=== PATIENT | male | born 1945 | race Caucasian/White ===

== ENCOUNTER 2024-11-13 15:44 | Outpatient (CLI) | payer MEDICARE, SELFPAY ==
--- OUTSIDE RECORDS SUMMARY | 2024-11-13 15:49 | XMS_ITS | Clinical Summary ---
Author Organization [facility] Address [address] [facility] [address] [facility] [place] [address] Phone Care Team Providers Care Us Marketing Director Name Role Phone Unavailable Primary Care Provider Unavailabl e Allergies No known active allergies Medications Hearing Aid AccessoryIndicati ons:Hearing loss, unspecified hearing loss type, unspecified laterality Hearing Aids DX H91.90. 2 Each 8 Active apixaban (Eliquis) 5 mg tablet TAKE 1 TABLET BY MOUTH TWICE DAILY 60 Tablet 11 3 Active metoprolol tartrate 75 mg Tablet TAKE 1 TABLET BY MOUTH TWICE DAILY 200 Tablet 2 4 Active diltiaZEM (CARDIZEM CD) 120 mg Controlled Delivery 24 hour capsule take one capsule by mouth daily 90 Capsule 4 Active hydroCHLOROthiazi de 25 mg tabletIndications :Essential hypertension take 1 tablet by mouth daily 100 Tablet 1 4 Active ramipriL (ALTACE) 10 mg capsuleIndication s:Essential hypertension take 1 capsule by mouth daily 100 Capsule 1 4 Active Active Problems Problem Noted Date Diagnosed Date Abnormal Holter monitor finding 06/17/2022 Prediabetes 03/21/2021 Anemia, unspecified 09/07/2012 Osteoarthrosis, unspecified whether generalized or localized, unspecified site 09/07/2012 Essential hypertension 08/19/2011 BPH (benign prostatic hyperplasia) 06/21/2011 Elevated prostate specific antigen (PSA) 011 Spinal stenosis, lumbar naima on, without neurogenic claudication 06/21/2011 Sensorineural hearing loss of both ears 05/29/20 11 Resolved Problems Problem Noted Date Diagnosed Date Resolved Date Controlled type 2 diabetes with neuropathy 02/09/2018 03/21/2021 Type 2 diabetes mellitus without complication 11/13/19 16 01/20/2018 Controlled type 2 diabetes m haim with 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, without long-term current use of insulin 09/07/2012 021 Encounters Date Type Department Care Team Description 11/06/2024 External Device Data STL ABSTRACTION Provider, Abstract 11/05/2024 External Device Data ST[facility] ABSTRACTION Provider, Abstract 10/19/2024 External Device Data [facility] ABSTRACTION Provider, Abstract 09/25/2024 [facility] [place] [address] [place] [address] [address] [place] [address] Selwyn Booker MD Essential hypertension 09/22/2024 External Device Data ST[facility] ABSTRACTION Provider, Abstract 09/21/2024 External Device Data [facility] ABSTRACTION Provider, Abstract from Last 3 Months Immunizations Immunization Administration Dates Next Due (ADACEL/BOOSTRIX)(10 YR UP) TDAP VACCINE, 0.5ML, IM 08/09/2008 (PFIZER)(12 YR UP) COVID-19 VACCINE - EMERGENCY USE AUTHORIZATION, MRNA, [id number](PF) 30 MCG/0.3 ML IM SUSP 12/26/2020,12/05/2020 (PNEUMOVAX 23)(50 YRS UP) PN EUMOCOCCAL POLYSACCHARIDE (PPV23) 0.5 ML, IM 03/21/2021 (PREVNAR 13)(6 WKS UP) PNEUM OCOCCAL CONJUGATE (PCV13) 0.5 ML, IM 08/23/2014 PNEUMOVAX (PPSV23) pneumococ abhi polysaccharide 23-valent Vaccine 08/15/2010 Family History Medical History Relation Name Comments Other Father blood clot Diabetes Mother Heart Disease Paternal Uncle Relation Name Status Comments Father Mother (Age 85) Paternal Uncle Social History Tobacco Use Types Packs/Day Years Used Date Smoking Tobacco: Never Smokeless Tobacco: Never Tobacco Cessation:Counseling Given: Not Answered Alcohol Use Standard Drinks/Week Comments No 0 (1 standard drink = 0.6 oz pur e alcohol) occ Sex and Gender Information Value Date Recorded Sex Assigned at Not on file 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 Gender Identity Not on file Sexual Orientation Not on file Occupation Industry Job Start Date Job End Date Not on file Not on file Not on file Not on file Last Filed Vital Signs Vital Sign Reading Time Taken Comments Blood Pressure 162/118 01/29/2023 9:00 AM CDT Pulse 111 01/29/2023 9:00 AM CDT Temperature - - Respiratory Rate 14 12/11/2016 10:12 AM CDT Oxygen Saturation 99% 01/29/2023 9:00 AM CDT Inhaled Oxygen Concentration - - Weight 65.8 kg (145 lb) 08/28/2023 12:02 PM BEAUTY COUNSELOR Height 182.9 cm (6') 08/28/2023 12:02 PM BEAUTY COUNSELOR Body Mass Index 19.67 08/28/2023 12:02 PM BEAUTY COUNSELOR Plan of Treatment Health Maintenance Due Date Last Done Comments ZOSTER VACCINE (1 of 2) 1993 DTAP/TDAP/TD VACCINES (2 - T d or Tdap) 08/09/2018 08/09/2008 RSV VACCINE (60+ or ) (1 - 1-dose 75+ series) 2018 INFLUENZA VACCINE (#1) 2024 08/28/2023, 2020 COVID-19 Vaccine (3 - 2023-2 5 season) 2024 12/26/2020, 12/05/2020 [place] Preventative Visit/Annual Wellness Visit 09/01/2024 08/28/2023, 05/28/2022, 03/08/2019, Additional history exists PNEUMOCOCCAL VACCINE 50+ YEARS Completed 0 03/21/2021, 08/23/2014, 08/15/2010 Insurance [facility] DUAL COMPLETE CHOICE PPO DSNP [facility] [id number]
--- OUTSIDE RECORDS SUMMARY | 2024-11-13 15:49 | XMS_ITS | Continuity of Care Document ---
Author Organization [facility] Address [address] [place] [address] Phone Care Team Providers Care Rate Examiner Name Role Phone Tung Patino MD Unavailable Unavailable Allergies, Adverse Reactions, Alerts Substance Reaction Status Criticality No Known allergies Medications Medication Instructions Dosage Effective Dates (start - stop) Status Comments hydrocodone 5 mg-acetaminophen 325 mg tablet take 1 - 2 Tablet by oral route every 6 hours as needed for pain 1-2 Tablet - Active gabapentin 100 mg capsule take 2 capsule by oral route 4 times every day - Active NAPROXEN (unknown strength) Not Available - Active RAMIPRIL (unknown strength) Not Available - Active POTASSIUM (unknown strength) Not Available - Active hydrocodone 5 mg-acetaminophen 325 mg tablet take 1 - 2 Tablet by oral route every 6 hours as needed for pain 1-2 Tablet - No Longer Active Procedures Procedure Date OFFICE/OUTPATIENT VISIT EST OFFICE CONSULTATION OFFICE/OUTPATIENT VISIT EST OFFICE CONSULTATION Advance Directives Directive Yes / No Effective Date File Name No Information Encounters Encounter Description Practice Location Reason(s) For Visit Diagnoses Date Provider Providers Copied on Encounter [facility], [address], [place], [address], [phone] [facility] [address] No Information 4 Carey Ruby. [address] [place], [place], [id number] . tel: [phone] [facility], [address] [place] [address], [address], [place] [phone] [facility] [address] No Information 4 Carey Ruby. [address] [place], [place], [id number] . tel: [phone] OFFICE/OUTPAT IENT VISIT EST [facility], [address] [place] [address], [address], [place] tel:[phone] [facility] Spinal stenosis of lumbar regionLow back painSciatica 3 Carey Ruby. [address] [place] [address], [id number] . tel: [phone] Specialist: Morro Kitchen, [address] [place] [address], [id number]. [phone] OFFICE CONSULTATION [facility], [address] [place] [address], [address], [place] tel:[phone] [facility] Spinal stenosis of lumbar region 3 Imtiaz Hooker. [address] [place] [address], [id number] . tel: [phone] Specialist: Morro iKtchen, [address] [place] [address], [address]. [phone] ring Provider: Gabe Centeno Retired, Retired [address], [place], [address]. tel:[phone] OFFICE/OUTPAT IENT VISIT EST [facility], [address] [place] [address], [address], [place] tel:[phone] [facility] SciaticaLow back painSpinal stenosis of lumbar region 3 Carey Ruby. [address] [place] [address], [id number] . tel: [phone] Referring Provider: Tung Bishop, [address] [place] [address], [id number]. tel:[phone] [facility], [address] [place] [address], [address], tel:[phone] [facility] No Information 3 Carey Ruby. [address] [place] [address], [id number] . tel: [phone] OFFICE CONSULTATION [facility], [address] [place] [address], [address], tel:[phone] [facility] Low back painSciatica 3 Carey Ruby. [address] [place] [address], [id number] . tel: [phone] Referring Provider: Gabe Centeno Retired, Retired [address] [place], [address]. [phone] Family History Family Member Type Diagnosis Age At Onset No Information Payers Payer name Insurance type Covered constitution party ID Authoriza tion(s) No Information Social History Type Description Quantity Date Captured Comments Sex Male Smoking Status No Information Chief Complaint And Reason For Visit No Information Reason For Referral Reason For Referral No Information Plan Of Treatment Date Type Action Status Referral Ordered: RADEX SPI LUMBOSAC 2/3 VIEWS ordered Referral Ordered: B1&/JT IMG LMTD AREA Appointment date/timeframe: 07/08/2013 ordered Referral Ordered: MRI SPI CANAL&CNTS LMBR C-MATRL Bilateral spine, lumbar Appointment date/timeframe: 06/21/2013 ordered History Of Present Illness Encounter Date Complaint History Of Prese nt Illness No Information Functional Status Date Functional Assessmen t No Information Instructions Date Instruction Additional Infor mation Physical activity counseling Rel ated to Dietary surveillance counseling Physical activity counseling Rel ated to Dietary surveillance counseling Physical activity counseling Rel ated to Dietary surveillance counseling Assessments Type Assessment Date No Information Patient Care Teams Name Effective Dates (start - stop) Status Members No Information
--- OUTSIDE RECORDS SUMMARY | 2024-11-13 15:50 | XMS_ITS | Encounter Summary ---
Author Organization [facility] Address [address] 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
--- OUTSIDE RECORDS SUMMARY | 2024-11-13 15:50 | XMS_ITS | Encounter Summary ---
Author Organization [facility] Address [address] [place] [address] Care Team Providers Care Chain Tender Name Role Phone Brendan Ramon MD Primary Care Provider Encounter Details Date Type Department Care Team (Late st Contact Info) Description 04/12/2019 Chart Note [facility] [address] [place] [address] Zoey Peralta, RN Social History Tobacco Use Types Packs/Day Years Used Date Smoking Tobacco: Never Smokeless Tobacco: Never Alcohol Use Standard Drinks/Week Comments No 0 (1 standard drink = 0.6 oz pur e alcohol) occ Sex and Gender Information Value Date Recorded Sex Assigned at Not on file Legal Sex Male 3:31 AM NETBACKUP ADMINISTRATOR Gender Identity Not on file Sexual Orientation Not on file Occupation Industry Job Start Date Job End Date Not on file Not on file Not on file Not on file documented as of this encounter Progress Notes * Brendan Ramon MD - 04/12/2019 6:00 PM CDT Thanks I deleted the ramipril 10 from his list documented in this encounter Plan of Treatment Not on file documented as of this encounter Visit Diagnoses Not on filedocumented in this encounter Care Teams Chain Tender Relationship Specialty Start Date End Date Brendan Ramon MD PCP - General Internal Medicine 02/09/18 03/20/21 documented as of this encounter
--- OUTSIDE RECORDS SUMMARY | 2024-11-13 15:50 | XMS_ITS | Encounter Summary ---
Author Organization [employer] [facility] Address [address] [place] [address] Care Team Providers Care Mobile Paint Specialist Name Role Phone Brendan Ramon MD Primary Care Provider Encounter Details Date Type Department Care Team (Latest Contact Info) Description 08/02/2002 Outpatient Historical [facility] SANDRA Moreno, Gabe Jordan MD NO ADDRESS ON FILE ANEMIA NOS (Primary Dx) Social History Tobacco Use Types Packs/Day Years Used Date Smoking Tobacco: Never Assessed Sex and Gender Information Value Date Recorded Sex Assigned at Not on file Legal Sex Male 3:31 AM ACTIVITY MANAGER Gender Identity Not on file Sexual Orientation Not on file documented as of this encounter Plan of Treatment Not on file documented as of this encounter Visit Diagnoses Diagnosis Anemia, unspecified- Primary documented in this encounter Care Teams Mobile Paint Specialist Relationship Specialty Start Date End Date Brendan Ramon MD PCP - General Internal Medicine 02/09/18 03/20/21 documented as of this encounter
--- OUTSIDE RECORDS SUMMARY | 2024-11-13 15:50 | XMS_ITS | Encounter Summary ---
Author Organization [facility] Address [address] [place]: Epic Prelude ADT [place] [address] Care Team Providers Care Diamond Finishing Supervisor Name Role Phone Brendan Ramon MD Primary Care Provider Encounter Details Date Type Department Care Team (Late st Contact Info) Description 10/19/1991 Outpatient Historical SafGabe mejia MD NO ADDRESS ON FILE Social History Tobacco Use Types Packs/Day Years Used Date Smoking Tobacco: Never Assessed Sex and Gender Information Value Date Recorded Sex Assigned at Not on file Legal Sex Male 3:31 AM FARE COLLECTOR Gender Identity Not on file Sexual Orientation Not on file documented as of this encounter Plan of Treatment Not on file documented as of this encounter Visit Diagnoses Not on filedocumented in this encounter Care Teams Diamond Finishing Supervisor Relationship Specialty Start Date End Date Brendan Ramon MD PCP - General Internal Medicine 02/09/18 03/20/21 documented as of this encounter
--- OUTSIDE RECORDS SUMMARY | 2024-11-13 15:50 | XMS_ITS | Encounter Summary ---
Author Organization [facility] Address [address] 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
--- OUTSIDE RECORDS SUMMARY | 2024-11-13 15:50 | XMS_ITS | Encounter Summary ---
Author Organization [facility] Address [address] [place]: Epic Prelude ADT [place] [address] Care Team Providers Care Barrel Filler Head Name Role Phone Brendan Ramon MD Primary Care Provider Encounter Details Date Type Department Care Team (Late st Contact Info) Description 04/14/1990 Outpatient Historical SafGabe mejia MD NO ADDRESS ON FILE Social History Tobacco Use Types Packs/Day Years Used Date Smoking Tobacco: Never Assessed Sex and Gender Information Value Date Recorded Sex Assigned at Not on file Legal Sex Male 3:31 AM ACCOUNTING RECRUITER Gender Identity Not on file Sexual Orientation Not on file documented as of this encounter Plan of Treatment Not on file documented as of this encounter Visit Diagnoses Not on filedocumented in this encounter Care Teams Barrel Filler Head Relationship Specialty Start Date End Date Brendan Ramon MD PCP - General Internal Medicine 02/09/18 03/20/21 documented as of this encounter
--- OUTSIDE RECORDS SUMMARY | 2024-11-13 15:50 | XMS_ITS | Encounter Summary ---
Author Organization [facility] Address [address] 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
--- OUTSIDE RECORDS SUMMARY | 2024-11-13 15:50 | XMS_ITS | Encounter Summary ---
Author Organization [facility] Address [address] 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
--- OUTSIDE RECORDS SUMMARY | 2024-11-13 15:50 | XMS_ITS | Encounter Summary ---
Author Organization [employer] [facility] Address [address] [place] [address] Care Team Providers Care Waste Management Specialist Name Role Phone Brendan Ramon MD Primary Care Provider Encounter Details Date Type Department Care Team (Latest Contact Info) Description 07/22/2005 Outpatient Historical HIS [facility] Moreno, Gabe Jordan MD NO ADDRESS ON FILE OSTEOARTHROS NOS-UNSPEC (Primary Dx) Social History Tobacco Use Types Packs/Day Years Used Date Smoking Tobacco: Never Assessed Sex and Gender Information Value Date Recorded Sex Assigned at Not on file Legal Sex Male 3:31 AM PHYSIOTHERAPY ASSISTANT Gender Identity Not on file Sexual Orientation Not on file documented as of this encounter Plan of Treatment Not on file documented as of this encounter Procedures Procedure Name Priority Date/Time Associated Diagnosis Comments URINALYSIS W/REFLEX MICROSCOPIC Routine 07/22/2005 3:24 PM PHYSIOTHERAPY ASSISTANT TSH REFLEXIVE Routine 07/22/2005 3:17 PM PHYSIOTHERAPY ASSISTANT CBC WITH DIFFERENTIAL Routine 07/22/2005 3:17 PM PHYSIOTHERAPY ASSISTANT CBC WITH DIFFERENTIAL Routine 07/22/2005 3:17 PM PHYSIOTHERAPY ASSISTANT PSA Routine 07/22/2005 3:17 PM PHYSIOTHERAPY ASSISTANT LIPID PANEL Routine 07/22/2005 3:17 PM PHYSIOTHERAPY ASSISTANT COMPREHENSIVE METABOLIC PANEL Routine 07/22/2005 3:17 PM PHYSIOTHERAPY ASSISTANT documented in this encounter Results * (ABNORMAL) URINALYSIS (07/22/2005 3:24 PM PHYSIOTHERAPY ASSISTANT) COLOR UA Yellow INTERFACE SYSTEM CLARITY UA Clear Clear INTERFACE SYSTEM SPECIFIC GRAVITY UA 1.010 1.001 - 1.035 INTERFACE SYSTEM PH UA 7.0 5.0 - 8.0 INTERFACE SYSTEM LEUKOCYTE ESTERASE UA Negative Negative INTERFACE SYSTEM NITRITE UA Negative Negative INTERFACE SYSTEM PROTEIN UA Negative Negative INTERFACE SYSTEM GLUCOSE UA Negative Negative INTERFACE SYSTEM KETONES UA Trace(A) Negative INTERFACE SYSTEM UROBILINOGEN UA <1 <1 mg/dL INTE RFACE SYSTEM BILIRUBIN UA Negative Negative INTERFA CE SYSTEM BLOOD UA Negative Negative INTERFACE SYSTEM 07/22/2005 3:24 PM PHYSIOTHERAPY ASSISTANT Gabe Moreno MD URINE ORDERABLES Final Res ult Performing Organization Address [facility] Phone Number INTERFACE SYSTEM Refer to clinic/hospital department * (ABNORMAL) CBC WITH DIFFERENTIAL (07/22/2005 3:17 PM PHYSIOTHERAPY ASSISTANT) NEUTROPHILS 72(H) 45 - 70 % INTERFAC E SYSTEM LYMPHOCYTES 18 16 - 45 % INTERFAC E SYSTEM MONOCYTES 8 3 - 13 % INTERFACE SYSTEM EOSINOPHILS 1 0 - 7 % INTERFAC E SYSTEM BASOPHILS 1 0 - 2 % INTERFACE SYSTEM NEUTROPHIL ABSOLUTE 4.72 1.90 - 7.00 K/uL INTERFACE SYSTEM LYMPHOCYTE ABSOLUTE 1.19 0.70 - 4.50 K/uL INTERFACE SYSTEM MONOCYTE ABSOLUTE 0.54 0.10 - 1.30 K/uL INTERFACE SYSTEM EOSINOPHIL ABSOLUTE 0.06 0.00 - 0.70 K/uL INTERFACE SYSTEM BASOPHILS ABSOLUTE 0.04 0.00 - 0.20 K/uL INTERFACE SYSTEM 07/22/2005 3:17 PM PHYSIOTHERAPY ASSISTANT Gabe Moreno MD HEMATOLOGY ORDERABLES Lexi l Result Performing Organization Address [facility] de Phone Number INTERFACE SYSTEM Refer to clinic/hospital department * CBC WITH DIFFERENTIAL (07/22/2005 3:17 PM PHYSIOTHERAPY ASSISTANT) WBC 6.6 4.0 - 9.8 K/uL INTERFACE SYSTEM RBC 4.85 4.50 - 5.40 M/uL INTERFACE SYSTEM HEMOGLOBIN 14.3 13.6 - 16.5 g/dL INTERFACE SYSTEM HEMATOCRIT 42.1 40.0 - 48.0 % INTERFACE SYSTEM MCV 86.8 82.0 - 99.0 fL INTERFACE SYSTEM MCH 29.5 27.2 - 32.6 pg INTERFACE SYSTEM MCHC 34.0 31.5 - 35.5 % INTERFACE SYSTEM RDW 12.9 11.5 - 14.5 % INTERFACE SYSTEM RDW-STDEV 41.3 37.1 - 48.7 fL INTERFACE SYSTEM PLATELETS 242 140 - 350 K/uL INTERFACE SYSTEM MPV 9.8 9.3 - 12.4 fL INTERFACE SYSTEM 07/22/2005 3:17 PM PHYSIOTHERAPY ASSISTANT Gabe Moreno MD HEMATOLOGY ORDERABLES Lexi l Result Performing Organization Address [facility] Phone Number INTERFACE SYSTEM Refer to clinic/hospital department * TSH REFLEXIVE (07/22/2005 3:17 PM PHYSIOTHERAPY ASSISTANT) TSH 1.21 0.27 - 4.20 uU/mL INTERFACE SYSTEM 07/22/2005 3:17 PM PHYSIOTHERAPY ASSISTANT Gabe Moreno MD CHEMISTRY ORDERABLES Final Result Performing Organization Address [facility] Co de Phone Number INTERFACE SYSTEM Refer to clinic/hospital department * PSA (07/22/2005 3:17 PM PHYSIOTHERAPY ASSISTANT) PSA 2.6 0.0 - 4.0 ng/mL INTERFACE SYSTEM Comment:Performed on [employer] M odular E170 System 07/22/2005 3:17 PM PHYSIOTHERAPY ASSISTANT Gabe Moreno MD CHEMISTRY ORDERABLES Final Result Performing Organization Address [facility] Co de Phone Number INTERFACE SYSTEM Refer to clinic/hospital department * LIPID PANEL (07/22/2005 3:17 PM PHYSIOTHERAPY ASSISTANT) LIPID PANEL COMMENT See below INTERFACE SYSTEM Comment: Adult ATP III Classifications: Cholesterol (mg/dL) Triglyceride (mg/dL) Desirable <200 Normal <150 Borderline 200 - 239 Borderline High 150 - 199 High >=240 High 200 - 499 Very High >=500 HDL Cholesterol (mg/dL) LDL (mg/dL) Low (increased risk) <40 Optimal <100 High (reduced risk) >=60 Near or above optimal 100 - 129 Borderline 130 - 159 High 160 - 189 Very High >=190 LDL calculation is not accurate if Triglycerides are greater than 400 mg /dL Pediatric NCEP Classifications: Cholesterol(<20 years),(mg/dL) Triglyceride Desirable <170 Pediatric classification Borderline 170 - 199 not defined. High >=200 HDL (<5 years) LDL (mg/dL) No Reference Range Established Desirable <110 Borderline 110 - 129 High >=130 CHOLESTEROL 149 100 - 199 mg/dL INTERFACE SYSTEM TRIGLYCERIDE 53 10 - 149 mg/dL INTERFACE SYSTEM HDL 59 40 - 59 mg/dL INTERFACE SYSTEM LDL CALCULATED 79 <=99 mg/dL INTERFACE SYSTEM CHOL/HDL RATIO 2.5 2.0 - 5.0 INTER FACE SYSTEM Comment:See interpretive manjinder a section for risk classifications. 07/22/2005 3:17 PM PHYSIOTHERAPY ASSISTANT us Gabe Moreno MD CHEMISTRY ORDERABLES Final Result INTERFACE SYSTEM Refer to clinic/hospital department * (ABNORMAL) COMPREHENSIVE METABOLIC PANEL (07/22/2005 3:17 PM PHYSIOTHERAPY ASSISTANT) GLUCOSE 100 65 - 109 mg/dL INTERFACE SYSTEM CREATININE 0.8 0.5 - 1.3 mg/dL INTERFACE SYSTEM CALCIUM 9.3 8.6 - 10.2 mg/dL INTERFACE SYSTEM AST 28 12 - 38 U/L INTERFACE SYSTEM ALKALINE PHOSPHATASE 92 40 - 129 U/L INTERFACE SYSTEM BILIRUBIN TOTAL 0.8 0.2 - 1.0 mg/dL INTERFACE SYSTEM ALBUMIN 4.7 3.4 - 4.8 g/dL INTERFACE SYSTEM TOTAL PROTEIN 7.8 6.3 - 8.6 g/dL INTERFACE SYSTEM ALT 19 0 - 41 U/L INTERFACE SYSTEM BUN 14 6 - 20 mg/dL INTERFACE SYSTEM SODIUM 139 135 - 145 mmol/L INTERFACE SYSTEM POTASSIUM 3.2(L) 3.5 - 4.9 mmol/L INTERFACE SYSTEM CHLORIDE 100 96 - 108 mmol/L INTERFACE SYSTEM CO2 31(H) 22 - 30 mmol/L INTERFACE SYSTEM 07/22/2005 3:17 PM PHYSIOTHERAPY ASSISTANT us Gabe Moreno MD CHEMISTRY ORDERABLES Final Result INTERFACE SYSTEM Refer to clinic/hospital department documented in this encounter Visit Diagnoses Diagnosis Osteoarthrosis, unspecified whether generalized or localized, unspecified site- Primary documented in this encounter Care Teams Waste Management Specialist Relationship Specialty Start Date End Date Brendan Ramon MD PCP - General Internal Medicine 02/09/18 03/20/21 documented as of this encounter
--- OUTSIDE RECORDS SUMMARY | 2024-11-13 15:50 | XMS_ITS | Encounter Summary ---
Author Organization [facility] Address [address] 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
--- OUTSIDE RECORDS SUMMARY | 2024-11-13 15:50 | XMS_ITS | Encounter Summary ---
Author Organization [employer] [facility] Address [address] [place] [address] Care Team Providers Care Continuity Reader Name Role Phone Brendan Ramon MD Primary Care Provider Encounter Details Date Type Department Care Team (Latest Contact Info) Description 08/12/2000 Outpatient Historical HIS [facility] Moreno, Gabe Jordan MD NO ADDRESS ON FILE Anemia, unspecified (Primary Dx) Social History Tobacco Use Types Packs/Day Years Used Date Smoking Tobacco: Never Assessed Sex and Gender Information Value Date Recorded Sex Assigned at Not on file Legal Sex Male 3:31 AM BAND MAKER Gender Identity Not on file Sexual Orientation Not on file documented as of this encounter Plan of Treatment Not on file documented as of this encounter Visit Diagnoses Diagnosis Anemia, unspecified- Primary documented in this encounter Care Teams Continuity Reader Relationship Specialty Start Date End Date Brendan Ramon MD PCP - General Internal Medicine 02/09/18 03/20/21 documented as of this encounter
--- OUTSIDE RECORDS SUMMARY | 2024-11-13 15:50 | XMS_ITS | Clinical Summary ---
Author Organization [facility] [address] Address [address] [place] [address] Care Team Providers Care Salesperson Pets And Pet Supplies Name Role Phone Benny Kendall MD Primary Care Provider [phone] Chato Alexander MD Unavailable Allergies No known active allergies Medications hearing aid accessory misc Hearing Aids DX H91.90. 01/23/20 18 Active cyanocobalamin (vitamin B-12) 500 mcg tabletIndicati ons:Prevention of Vitamin B12 Deficiency Take 1 tablet (500 mcg total) by mouth daily Active magnesium oxide (MAG-OX) 250 mg (150.8 mg elemental) tabletIndicati ons:hypomagnes emia 1 tablet (250 mg total) daily Active cholecalcifero l (Vitamin D3) 2000 unit capsule 1 capsule (2,000 Units total) Active glucosam-madyson- [id number]-H-pkla-shan sw 750 mg-644 mg- 30 mg-1 mg tablet Take by mouth Active acetaminophen (ARTHRITIS PAIN RELIEF, ACETAM, ORAL) Take by mouth Ac tive dilTIAZem CD 120 mg 24 hr capsule Take 1 capsule (120 mg total) by mouth daily 90 capsule 3 12/11/19 24 Active metFORMIN XR (GLUCOPHAGE XR) 500 mg 24 hr tablet Take 1 tablet (500 mg total) by mouth daily with breakfast 30 tablet 2 12/21/19 24 025 Active ipratropium (ATROVENT) 21 mcg (0.03 %) nasal sprayIndicatio ns:Rhinorrhea USE 2 SPRAYS IN BOTH NOSTRILS EVERY 12 HOURS 90 mL 1 10/02/19 25 Active metoprolol tartrate (LOPRESSOR) 75 mg tablet immediate release tablet TAKE 1 TABLET BY MOUTH TWICE DAILY 200 tablet 2 10/13/19 25 Active Eliquis 5 mg tablet TAKE 1 TABLET BY MOUTH TWICE DAILY 200 tablet 2 10/26/19 25 Active hydroCHLOROthi azide (HYDRODIURIL) 25 mg tablet Take 1 tablet (25 mg total) by mouth daily 90 tablet 3 10/27/19 25 026 Active ramipriL (ALTACE) 10 mg capsule Take 1 capsule (10 mg total) by mouth daily 90 capsule 3 10/27/19 25 026 Active hydroCHLOROthi azide (HYDRODIURIL) 25 mg tablet Take 1 tablet (25 mg total) by mouth daily 05/13/20 23 025 Discontinued(Re order) ramipriL (ALTACE) 10 mg capsule Take 1 capsule (10 mg total) by mouth daily 05/13/20 23 025 Discontinued(Re order) Eliquis 5 mg tablet Take 1 tablet (5 mg total) by mouth 2 (two) times a day 180 tablet 3 12/11/19 24 025 Discontinued Active Problems Problem Noted Date Diagnosed Date Left inguinal hernia 07/06/2024 Longstanding persistent atrial fibrillation 06/02 Nonrheumatic mitral valve regurgitation 12/11/19 24 RBBB 12/11/2023 Establishing care with new doctor, encounter for 12/09/2023 Assessment & Plan (12/09/2023 1:23 PM CDT): A(n) initial visit to establish care has been performed today. Olman Lindsay is not up to date on screening tests. He is in need of Hepatitis B screening and Cholesterol screening. He is up to date on needed preventative vaccinations. We discussed healthy lifestyle habits, educational material has been given. Medications reviewed, changes documented as per the medical record and discussed with patient along with risks vs benefits. Return in 6 months Vegetarian diet 12/09/2023 Abnormal Holter monitor finding 06/17/2022 Prediabetes 03/21/2021 Anemia, unspecified 09/07/2012 Osteoarthritis 09/07/2012 Essential hypertension 08/19/2011 BPH (benign prostatic hyperplasia) 06/21/2011 Elevated prostate specific antigen (PSA) 011 Spinal stenosis, lumbar naima on, without neurogenic claudication 06/21/2011 Sensorineural hearing loss of both ears 05/29/20 11 Resolved Problems Problem Noted Date Diagnosed Date Resolved Date Atrial fibrillation, unspecified type 12/09/2023 06/22/2024 Encounters Date Type Department Care Team Description 10/25/[address] [address] Ya Yu MA Successful Phone Call (AWV SCHEDULING) 10/20/[address] [address] Ya Yu MA Unsuccessful Phone Call 1 (AWV SCHEDULING) 09/02/2024 11:45 AM FEEDER DRIVER Office Visit [facility] Primary Care at [address] [address] Benny Kendall MD Rhinorrhea (Primary Dx) 08/20/2024 Telephone [facility] Primary Care at [address] [address] Benny Kendall MD Appointment Request from Last 3 Months Immunizations Immunization Administration Dates Next Due Influenza, Unspecified 07/06/2024(Deferr ed: Patient Refused),07/06/2024(Deferred: Patient Refused),04/01/2023(Deferred: Patient Refused),03/01/2023(Deferred: Patient Refused) Pneumococcal Conjugate PCV 13 08/23/2014 Pneumococcal Polysaccharide PPV23 03/21/2021, RSV Vaccine, Pref, Recombina nt, Subunit, Adjuvanted, PF, IM (Arexvy) 05/09/2023 Tdap 08/09/2008 Medical History Medical History Date Comments Hypertension Atrial fibrillation (HCC) Arthritis Spinal stenosis, lumbar region, without neurogen ic claudication 06/21/2011 Anemia, unspecified 09/07/2012 BPH (benign prostatic hyperplasia) 06/21/2011 Prediabetes 03/21/2021 Family History Medical History Relation Name Comments Blood Clot Father No Known Problems Maternal Grandfather No Known Problems Maternal Grandmother smoker Mother No Known Problems Paternal Grandfather No Known Problems Paternal Grandmother Relation Name Status Comments Father Maternal Grandfather Maternal Grandmother Mother Paternal Grandfather Paternal Grandmother Social History Tobacco Use Types Packs/Day Years Used Date Smoking Tobacco: Never Smokeless Tobacco: Never Tobacco Cessation:Counseling Given: Not Answered AUDIT-C Answer Date Recorded Q1: How often do you have a drink containing alcohol? Never 12/09/2023 Q2: How many drinks containi ng alcohol do you have on a typical day when you are drinking? Patient does not drink Q3: How often do you have si x or more drinks on one occasion? Never 12/09/2023 PHQ-2 Answer Date Recorded PHQ-2 Total Score (If total score is 3 or more points, staff should administer the PHQ-9) 0 07/06/2024 Sex and Gender Information Value Date Recorded Sex Assigned at Not on file Legal Sex Male 3:56 PM FEEDER DRIVER Gender Identity Not on file Sexual Orientation Not on file Obstetrics History Last Filed Vital Signs Vital Sign Reading Time Taken Comments Blood Pressure 118/80 09/02/2024 12:09 PM FEEDER DRIVER Pulse 80 09/02/2024 12:09 PM FEEDER DRIVER Temperature 36 C (96.8 F) 09/02/2024 12:09 PM FEEDER DRIVER Respiratory Rate 18 09/02/2024 12:09 PM FEEDER DRIVER Oxygen Saturation 98% 09/02/2024 12:09 PM FEEDER DRIVER Inhaled Oxygen Concentration - - Weight 60.8 kg (134 lb) 09/02/2024 12:09 PM FEEDER DRIVER Height 182.9 cm (6') 09/02/2024 12:09 PM FEEDER DRIVER Body Mass Index 18.17 09/02/2024 12:09 PM FEEDER DRIVER Plan of Treatment Health Maintenance Due Date Last Done Comments Hepatitis B Screening 1963 DTaP/Tdap/Td Vaccine (2 - Td or Tdap) 08/09/2018 08/09/2008 Covid-19 Vaccine ( season) 2024 05/23/2023, 05/23/2022, 12/06/2021, Additional history exists Well Visit 65+ 08/28/2024 08/28/2023 Fall Risk Assessment 12/08/2024 12/09/2023 Zoster Vaccine (1 of 2) 12/08/2024 Post poned from 1993 (Insurance / Financial) Influenza Vaccine (#1) 2025 Postp oned from 05/02/2024 (Patient declined, but will receive in the future) Depression Screening 07/06/2025 07/06/2024, 12/09/19 Pneumococcal vaccine 65+ Completed 021, 08/23/2014, 08/15/2010 Insurance MEDICARE [employer]IONS Care Teams Salesperson Pets And Pet Supplies Relationship Specialty Start Date End Date Benny Kendall MD [address] [facility] [address] [place] [address] PCP - General Family Medicine 12/09/23 Chato Alexander MD [address] [facility] [address] [facility] [address] [place] [address] Consulting Physician Cardiology 12/09/23
--- OUTSIDE RECORDS SUMMARY | 2024-11-13 15:50 | XMS_ITS | Encounter Summary ---
Author Organization [facility] Address [address] 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
--- OUTSIDE RECORDS SUMMARY | 2024-11-13 15:50 | XMS_ITS | Encounter Summary ---
Author Organization [employer] Address [address] [place] [address] Care Team Providers Care Die Casting Machine Operator Name Role Phone Brendan Ramon MD Primary Care Provider Encounter Details Date Type Department Care Team (Latest Contact Info) Description 12/06/2004 Outpatient Historical [facility] Gabe Neff MD NO ADDRESS ON FILE ACQ SPONDYLOLISTHESIS (Primary Dx) Social History Tobacco Use Types Packs/Day Years Used Date Smoking Tobacco: Never Assessed Sex and Gender Information Value Date Recorded Sex Assigned at Not on file Legal Sex Male 3:31 AM BLASTING MINER Gender Identity Not on file Sexual Orientation Not on file documented as of this encounter Plan of Treatment Not on file documented as of this encounter Visit Diagnoses Diagnosis Acquired spondylolisthesis- Primary documented in this encounter Care Teams Die Casting Machine Operator Relationship Specialty Start Date End Date Brendan Ramon MD PCP - General Internal Medicine 02/09/18 03/20/21 documented as of this encounter
--- OUTSIDE RECORDS SUMMARY | 2024-11-13 15:50 | XMS_ITS | Encounter Summary ---
Author Organization [employer] [facility] Address [address] [place] [address] Care Team Providers Care Retention Manager Name Role Phone Brendan Ramon MD Primary Care Provider Encounter Details Date Type Department Care Team (Latest Contact Info) Description 08/13/2004 Outpatient Historical HIS [facility] Moreno, Gabe Jordan MD NO ADDRESS ON FILE ANEMIA NOS (Primary Dx) Social History Tobacco Use Types Packs/Day Years Used Date Smoking Tobacco: Never Assessed Sex and Gender Information Value Date Recorded Sex Assigned at Not on file Legal Sex Male 3:31 AM WEDDING FLORIST Gender Identity Not on file Sexual Orientation Not on file documented as of this encounter Plan of Treatment Not on file documented as of this encounter Visit Diagnoses Diagnosis Anemia, unspecified- Primary documented in this encounter Care Teams Retention Manager Relationship Specialty Start Date End Date Brendan Ramon MD PCP - General Internal Medicine 02/09/18 03/20/21 documented as of this encounter
--- OUTSIDE RECORDS SUMMARY | 2024-11-13 15:50 | XMS_ITS | Encounter Summary ---
Author Organization [facility] Address [address] [place]: Epic Prelude ADT [place] [address] Care Team Providers Care Chemical Operator Name Role Phone Brendan Ramon MD Primary Care Provider Encounter Details Date Type Department Care Team (Late st Contact Info) Description 11/10/1992 Outpatient Historical Gabe Moreno MD NO ADDRESS ON FILE Social History Tobacco Use Types Packs/Day Years Used Date Smoking Tobacco: Never Assessed Sex and Gender Information Value Date Recorded Sex Assigned at Not on file Legal Sex Male 3:31 AM COLLABORATING SUPERVISING PHYSICIAN Gender Identity Not on file Sexual Orientation Not on file documented as of this encounter Plan of Treatment Not on file documented as of this encounter Visit Diagnoses Not on filedocumented in this encounter Care Teams Chemical Operator Relationship Specialty Start Date End Date Brendan Ramon MD PCP - General Internal Medicine 02/09/18 03/20/21 documented as of this encounter
--- OUTSIDE RECORDS SUMMARY | 2024-11-13 15:50 | XMS_ITS | Referral Summary ---
Author Organization [facility] [address] Address [address] [place] [address] Care Team Providers Care Compliance Analyst Name Role Phone Benny Kendall MD Primary Care Provider [phone] Chato Alexander MD Unavailable Encounters Date Type Department Care Team Description 10/25/[address] [address] Ya Yu MA Successful Phone Call (AWV SCHEDULING) 10/20/[address] [address] Ya Yu MA Unsuccessful Phone Call 1 (AWV SCHEDULING) 09/02/2024 11:45 AM DRESSAGE INSTRUCTOR Office Visit [facility] Primary Care at [address] [address] Benny Kendall MD Rhinorrhea (Primary Dx) 08/20/2024 Telephone [facility] Primary Care at [address] [address] Benny Kendall MD Appointment Request from Last 3 Months Allergies No known active allergies Medications hearing aid accessory [facility] Aids DX H91.90. 01/23/20 18 Active cyanocobalamin (vitamin B-12) 500 mcg tabletIndicati ons:Prevention of Vitamin B12 Deficiency Take 1 tablet (500 mcg total) by mouth daily Active magnesium oxide (MAG-OX) 250 mg (150.8 mg elemental) tabletIndicati ons:hypomagnes emia 1 tablet (250 mg total) daily Active cholecalcifero l (Vitamin D3) 2000 unit capsule 1 capsule (2,000 Units total) Active glucosam-madyson- wzo7-B-kldn-shan sw 750 mg-644 mg- 30 mg-1 mg [...] establish care has been performed today. Olman Montoya is not up to date on screening [...] Date Atrial fibrillation, unspecified type 12/09/2023 06/22/2024 Immunizations Immunization Administration Dates Next Due Influenza, Unspecified 07/06/2024(Deferr ed: Patient Refused),07/06/2024(Deferred: Patient Refused),04/01/2023(Deferred: Patient Refused),03/01/2023(Deferred: Patient Refused) Pneumococcal Conjugate PCV 13 08/23/2014 Pneumococcal Polysaccharide PPV23 03/21/2021, RSV Vaccine, Pref, Recombina nt, Subunit, Adjuvanted, PF, IM (Arexvy) 05/09/2023 Tdap 08/09/2008 Social History Tobacco Use Types Packs/Day Years [...] on file Legal Sex Male 3:56 PM DRESSAGE INSTRUCTOR Gender Identity Not on file Sexual Orientation Not on file Last Filed Vital Signs Vital Sign Reading Time Taken Comments Blood Pressure 118/80 09/02/2024 12:09 PM DRESSAGE INSTRUCTOR Pulse 80 09/02/2024 12:09 PM DRESSAGE INSTRUCTOR Temperature 36 C (96.8 F) 09/02/2024 12:09 PM DRESSAGE INSTRUCTOR Respiratory Rate 18 09/02/2024 12:09 PM DRESSAGE INSTRUCTOR Oxygen Saturation 98% 09/02/2024 12:09 PM DRESSAGE INSTRUCTOR Inhaled Oxygen Concentration - - Weight 60.8 kg (134 lb) 09/02/2024 12:09 PM DRESSAGE INSTRUCTOR Height 182.9 cm (6') 09/02/2024 12:09 PM DRESSAGE INSTRUCTOR Body Mass Index 18.17 09/02/2024 12:09 PM DRESSAGE INSTRUCTOR Plan of Treatment Not on file Insurance [employer] Care Teams Compliance Analyst Relationship Specialty Start Date End Date Benny Kendall MD [address] [facility] [address] [place] [address] PCP - General Family Medicine 12/09/23 Chato Alexander MD [address] [facility] [address] [place] [address] Consulting Physician Cardiology 12/09/23
--- OUTSIDE RECORDS SUMMARY | 2024-11-13 15:50 | XMS_ITS | Encounter Summary ---
Author Organization [employer] [facility] Address 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
--- OUTSIDE RECORDS SUMMARY | 2024-11-13 15:50 | XMS_ITS | Encounter Summary ---
Author Organization [employer] [facility] Address [address] [place] [address] Care Team Providers Care Commissioned Sales Associate Name Role Phone Brendan Ramon MD Primary Care Provider Encounter Details Date Type Department Care Team (Latest Contact Info) Description 08/11/2006 Outpatient Historical HIS [facility] Moreno, Gabe Jordan MD NO ADDRESS ON FILE Unspecified Anemia (Primary Dx) Social History Tobacco Use Types Packs/Day Years Used Date Smoking Tobacco: Never Assessed Sex and Gender Information Value Date Recorded Sex Assigned at Not on file Legal Sex Male 3:31 AM PILE DRIVING SUPERVISOR Gender Identity Not on file Sexual Orientation Not on file documented as of this encounter Plan of Treatment Not on file documented as of this encounter Procedures Procedure Name Priority Date/Time Associated Diagnosis Comments URINALYSIS W/REFLEX MICROSCOPIC Routine 08/11/2006 10:27 AM PILE DRIVING SUPERVISOR TSH REFLEXIVE Routine 08/11/2006 10:23 AM PILE DRIVING SUPERVISOR CBC WITH DIFFERENTIAL Routine 08/11/2006 10:23 AM PILE DRIVING SUPERVISOR CBC WITH DIFFERENTIAL Routine 08/11/2006 10:23 AM PILE DRIVING SUPERVISOR PSA Routine 08/11/2006 10:23 AM PILE DRIVING SUPERVISOR LIPID PANEL Routine 08/11/2006 10:23 AM PILE DRIVING SUPERVISOR COMPREHENSIVE METABOLIC PANEL Routine 08/11/2006 10:23 AM PILE DRIVING SUPERVISOR documented in this encounter Results * URINALYSIS (08/11/2006 10:27 AM PILE DRIVING SUPERVISOR) COLOR UA Colorless INTERFACE SYSTEM CLARITY UA Clear Clear INTERFACE SYSTEM SPECIFIC GRAVITY UA 1.002 1.001 - 1.035 INTERFACE SYSTEM PH UA 5.0 5.0 - 8.0 INTERFACE SYSTEM LEUKOCYTE ESTERASE UA Negative Negative INTERFACE SYSTEM NITRITE UA Negative Negative INTERFACE SYSTEM PROTEIN UA Negative Negative INTERFACE SYSTEM GLUCOSE UA Negative Negative INTERFACE SYSTEM KETONES UA Negative Negative INTERFACE SYSTEM UROBILINOGEN UA <1 <=1 mg/dL INTE RFACE SYSTEM BILIRUBIN UA Negative Negative INTERFA CE SYSTEM BLOOD UA Negative Negative INTERFACE SYSTEM 08/11/2006 10:2 7 AM PILE DRIVING SUPERVISOR Gabe Moreno MD URINE ORDERABLES Final Res ult Performing Organization Address [facility] de Phone Number INTERFACE SYSTEM Refer to clinic/hospital department * (ABNORMAL) CBC WITH DIFFERENTIAL (08/11/2006 10:23 AM PILE DRIVING SUPERVISOR) NEUTROPHILS 72(H) 45 - 70 % INTERFAC E SYSTEM LYMPHOCYTES 19 16 - 45 % INTERFAC E SYSTEM MONOCYTES 8 3 - 13 % INTERFACE SYSTEM EOSINOPHILS 1 0 - 7 % INTERFAC E SYSTEM BASOPHILS 1 0 - 2 % INTERFACE SYSTEM NEUTROPHIL ABSOLUTE 3.15 1.90 - 7.00 K/uL INTERFACE SYSTEM LYMPHOCYTE ABSOLUTE 0.81 0.70 - 4.50 K/uL INTERFACE SYSTEM MONOCYTE ABSOLUTE 0.33 0.10 - 1.30 K/uL INTERFACE SYSTEM EOSINOPHIL ABSOLUTE 0.06 0.00 - 0.70 K/uL INTERFACE SYSTEM BASOPHILS ABSOLUTE 0.04 0.00 - 0.20 K/uL INTERFACE SYSTEM 08/11/2006 10:2 3 AM PILE DRIVING SUPERVISOR Gabe Moreno MD HEMATOLOGY ORDERABLES Lexi l Result Performing Organization Address [facility] de Phone Number INTERFACE SYSTEM Refer to clinic/hospital department * (ABNORMAL) CBC WITH DIFFERENTIAL (08/11/2006 10:23 AM PILE DRIVING SUPERVISOR) WBC 4.4 4.0 - 9.8 K/uL INTERFACE SYSTEM RBC 4.54 4.50 - 5.40 M/uL INTERFACE SYSTEM HEMOGLOBIN 13.2(L) 13.6 - 16.5 g/dL INTERFACE SYSTEM HEMATOCRIT 39.0(L) 40.0 - 48.0 % INTERFACE SYSTEM MCV 85.9 82.0 - 99.0 fL INTERFACE SYSTEM MCH 29.1 27.2 - 32.6 pg INTERFACE SYSTEM MCHC 33.8 31.5 - 35.5 % INTERFACE SYSTEM RDW 12.8 11.5 - 14.5 % INTERFACE SYSTEM RDW-STDEV 40.4 37.1 - 48.7 fL INTERFACE SYSTEM PLATELETS 247 140 - 350 K/uL INTERFACE SYSTEM MPV 9.3 9.3 - 12.4 fL INTERFACE SYSTEM 08/11/2006 10:2 3 AM PILE DRIVING SUPERVISOR us Gabe Moreno MD HEMATOLOGY ORDERABLES Lexi l Result Performing Organization Address [facility] Phone Number INTERFACE SYSTEM Refer to clinic/hospital department * TSH REFLEXIVE (08/11/2006 10:23 AM PILE DRIVING SUPERVISOR) TSH 1.25 0.27 - 4.20 uU/mL INTERFACE SYSTEM 08/11/2006 10:2 3 AM PILE DRIVING SUPERVISOR Gabe Moreno MD CHEMISTRY ORDERABLES Final Result Performing Organization Address [facility] Co de Phone Number INTERFACE SYSTEM Refer to clinic/hospital department * (ABNORMAL) PSA (08/11/2006 10:23 AM PILE DRIVING SUPERVISOR) PSA 6.7(H) 0.0 - 4.0 ng/mL INTERFACE SYSTEM Comment:Performed on [employer]ular E170 System 08/11/2006 10:2 3 AM PILE DRIVING SUPERVISOR Gabe Moreno MD CHEMISTRY ORDERABLES Final Result Performing Organization Address City/[facility] de Phone Number INTERFACE SYSTEM Refer to clinic/hospital department * LIPID PANEL (08/11/2006 10:23 AM PILE DRIVING SUPERVISOR) CHOLESTEROL 120 100 - 199 mg/dL INTERFACE SYSTEM TRIGLYCERIDE 76 10 - 149 mg/dL INTERFACE SYSTEM HDL 51 40 - 59 mg/dL INTERFACE SYSTEM CHOL/HDL RATIO 2.4 2.0 - 5.0 INTER FACE SYSTEM LDL CALCULATED 54 <=99 mg/dL INTERFACE SYSTEM LIPID PANEL COMMENT See Below INTERFACE SYSTEM Comment: The adult ATP and pediatric NCEP classifications for lipids are available on the [facility] Intranet at: [email or web address] Select: Lab Policies and Procedures Select: Reference Ranges - Lipids 08/11/2006 10:2 3 AM PILE DRIVING SUPERVISOR Gabe Moreno MD CHEMISTRY ORDERABLES Final Result INTERFACE SYSTEM Refer to clinic/hospital department * (ABNORMAL) COMPREHENSIVE METABOLIC PANEL (08/11/2006 10:23 AM PILE DRIVING SUPERVISOR) GLUCOSE 110(H) 65 - 99 mg/dL INTERFACE SYSTEM CREATININE 0.63(L) 0.67 - 1.17 mg/dL INTERFACE SYSTEM Comment:Note: Effective 07/02 New Methodolgy and Reference Ranges CALCIUM 8.8 8.4 - 10.2 mg/dL INTERFACE SYSTEM ALKALINE PHOSPHATASE 64 40 - 129 U/L INTERFACE SYSTEM AST 19 12 - 38 U/L INTERFACE SYSTEM ALT 14 0 - 41 U/L INTERFACE SYSTEM TOTAL PROTEIN 6.7 6.3 - 8.6 g/dL INTERFACE SYSTEM ALBUMIN 4.3 3.4 - 4.8 g/dL INTERFACE SYSTEM BILIRUBIN TOTAL 0.4 0.2 - 1.0 mg/dL INTERFACE SYSTEM BUN 12 6 - 20 mg/dL INTERFACE SYSTEM SODIUM 139 135 - 145 mmol/L INTERFACE SYSTEM POTASSIUM 3.8 3.5 - 4.9 mmol/L INTERFACE SYSTEM CHLORIDE 101 96 - 108 mmol/L INTERFACE SYSTEM CO2 31(H) 22 - 30 mmol/L INTERFACE SYSTEM GFR, >60 >=60 mL/min/1. 7 sq meter INTERFACE SYSTEM GFR >60 >=60 mL/min/1. 7 sq meter INTERFACE SYSTEM Comment: Estimated GFR rate interpretative information for both Americans and non- Americans is available on the [facility] Ap[employer]any[facility] at: [email or web address] Select: Lab Policies and Procedures Select: Reference Ranges - GFR 08/11/2006 10:2 3 AM PILE DRIVING SUPERVISOR Gabe Moreno MD CHEMISTRY ORDERABLES Final Result INTERFACE SYSTEM Refer to clinic/hospital department documented in this encounter Visit Diagnoses Diagnosis Anemia, unspecified- Primary documented in this encounter Care Teams Commissioned Sales Associate Relationship Specialty Start Date End Date Brendan Ramon MD PCP - General Internal Medicine 02/09/18 03/20/21 documented as of this encounter
--- OUTSIDE RECORDS SUMMARY | 2024-11-13 15:50 | XMS_ITS | Encounter Summary ---
Author Organization [facility] Address [address] 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
--- OUTSIDE RECORDS SUMMARY | 2024-11-13 15:50 | XMS_ITS | Encounter Summary ---
Author Organization [employer] [facility] Address 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
--- OUTSIDE RECORDS SUMMARY | 2024-11-13 15:50 | XMS_ITS | Encounter Summary ---
Author Organization [facility] Address [address] 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
[2024-11-13 16:15] LABS: Anion Gap 6 mmol/L (4-12); Blood Urea Nitrogen 18 mg/dL (7-18); Calcium 8.9 mg/dL (8.5-10.1); Carbon Dioxide 32 mmol/L (21-32); Chloride 99 mmol/L (98-108); Estimated Glomerular Filt Rate > 60; Glucose 123 mg/dL (70-99); Osmolality Calculated 286 mOsm/kg (285-295); Potassium 3.7 mmol/L (3.5-5.1); Sodium 137 mmol/L (136-145)
== END 2024-11-13 15:45 | disposition home or self-care (01) ==
LOC: CHSLAB 15:48
PROVIDERS: PCP Family Medicine; Visit Provider Anesthesiology
DX: Z51.81 Encounter for therapeutic drug level monitoring (principal)
CPT/HCPCS: 36415; 80048

== ENCOUNTER 2024-11-29 00:27 | Day surgery (SDC) | payer MEDICARE, SELFPAY ==
[2024-08-20 10:08] VITALS: BMI 19.1
--- NOTE | 2024-08-26 10:14 | PC.NURSE ---
Addendum entered by Trina Lange RN 11/10/24 11:21: Report to the OP waiting room entrance under the green pavilion located off [address] at 0730am on 11/29/24 Planned Procedure is 0930am Pt has had no change in status will get BMP done next week at [facility] ,Understands preop Instructions and new dates/Times and Med dates of holding meds as below Patients may have clear liquids (water, carbonated beverages, clear teas, apple juice) until (6:30am) 3 hours prior to surgery with a maximum of 20 ounces. - No food from midnight until time of surgery and no smoking. This includes no chewing gum, candy or mints. Take only the following medications with a SIP of water on the morning of surgery: ___DILTIAZEM, METOPROLOL DO NOT STOP ANY OF YOUR OTHER PRESCRIPTION MEDICATIONS PRIOR TO SURGERY EXCEPT THE FOLLOWING Medications to discontinue per physician HOLD ELIQUIS 3 DAYS PRE-OP PER DR ROSARIO- LAST DOSE 11/25/24. HOLD ALL VITAMINS/SUPPLEMENTS 3 DAYS PRE-OP PER ANESTHESIA- LAST DOSE 11/25/24 Original Note: Report to the Outpatient Waiting Room, entrance under the green pavilion located off [facility], at time __7:30AM on date __09/06/24 . Planned Procedure Time: ___9:30AM .? Time changes happen often and if your time is changed the preop area will call you the afternoon before. - You and your visitor will be asked to self-screen and do not enter if you have any COVID symptoms. Please call surgeon if you need to reschedule. - A mask is optional within the hospital at this time. Patients may have clear liquids (water, carbonated beverages, clear teas, apple juice) until (6:30am) 3 hours prior to surgery with a maximum of 20 ounces. - No food from midnight until time of surgery and no smoking. This includes no chewing gum, candy or mints. Take only the following medications with a SIP of water on the morning of surgery: ___DILTIAZEM, METOPROLOL DO NOT STOP ANY OF YOUR OTHER PRESCRIPTION MEDICATIONS PRIOR TO SURGERY EXCEPT THE FOLLOWING Medications to discontinue per physician HOLD ELIQUIS 3 DAYS PRE-OP PER DR ROSARIO- LAST DOSE 09/02/24. HOLD ALL VITAMINS/SUPPLEMENTS 3 DAYS PRE-OP PER ANESTHESIA- LAST DOSE 09/02/24 Please no make-up, nail albanian, hairspray, perfume, deodorant, or body powder the day of surgery.? No jewelry (including any body piercings) or valuables the day of surgery, leave them at home.? Please take a shower or bath the night before, or the morning of, surgery with an antibacterial soap.? Wear comfortable, loose fitting clothing.? Children are encouraged to wear pajamas. - Jewelry must be removed prior to entering the operating room.? Rings and piercings that are not removed may be cut off. - The hospital will not accept responsibility for valuables.? - Please leave all valuables, including medications, at home the day of surgery. If you are going home after surgery, a licensed warehouse delivery driver must drive you home.? - NO public transportation without another adult if you receive anesthesia. - We recommend that an adult stay with you for 24 hours following discharge. - We also recommend that you do not drive, make important decision, drink alcoholic beverages, or take any drugs that were not prescribed by your health care provider for at least 24 hours after your discharge time. Follow any additional instructions given to you from your surgeon. Telephone instructions given to ___PATIENT and asked if any additional questions and then verbalized understanding. Patient advised to call surgeon office or pre surgery nurse liaison [phone] if any additional questions.
[2024-11-29] VITALS (9 sets, daily range): BP systolic 117–139; BP diastolic 77–89; PULSE 68–86; RESP 14–23; TEMP 36.4–36.6; O2SAT 93–100
--- OUTSIDE RECORDS SUMMARY | 2024-11-29 00:33 | XMS_ITS | Encounter Summary ---
Author Organization [employer] [facility] Address 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
--- OUTSIDE RECORDS SUMMARY | 2024-11-29 00:33 | XMS_ITS | Encounter Summary ---
Author Organization [employer] [facility] Address 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 BOX SERVICER Gender Identity Not on file Sexual Orientation Not on file documented as of this encounter Plan of Treatment Not on file documented as of this encounter Procedures Procedure Name Priority Date/Time Associated Diagnosis Comments URINALYSIS W/REFLEX MICROSCOPIC Routine 08/11/2006 10:27 AM JUKE BOX SERVICER TSH REFLEXIVE Routine 08/11/2006 10:23 AM JUKE BOX SERVICER CBC WITH DIFFERENTIAL Routine 08/11/2006 10:23 AM JUKE BOX SERVICER CBC WITH DIFFERENTIAL Routine 08/11/2006 10:23 AM JUKE BOX SERVICER PSA Routine 08/11/2006 10:23 AM JUKE BOX SERVICER LIPID PANEL Routine 08/11/2006 10:23 AM JUKE BOX SERVICER COMPREHENSIVE METABOLIC PANEL Routine 08/11/2006 10:23 AM JUKE BOX SERVICER documented in this encounter Results * URINALYSIS (08/11/2006 10:27 AM JUKE BOX SERVICER) COLOR UA Colorless INTERFACE SYSTEM CLARITY UA [...] Negative INTERFACE SYSTEM 08/11/2006 10:2 7 AM JUKE BOX SERVICER Gabe Moreno MD URINE ORDERABLES Final Res ult Performing Organization Address [facility] de Phone Number INTERFACE SYSTEM Refer to clinic/hospital department * (ABNORMAL) CBC WITH DIFFERENTIAL (08/11/2006 10:23 AM JUKE BOX SERVICER) NEUTROPHILS 72(H) 45 - 70 % INTERFAC [...] K/uL INTERFACE SYSTEM 08/11/2006 10:2 3 AM JUKE BOX SERVICER Gabe Moreno MD HEMATOLOGY ORDERABLES Lexi l Result Performing Organization Address [facility] de Phone Number INTERFACE SYSTEM Refer to clinic/hospital department * (ABNORMAL) CBC WITH DIFFERENTIAL (08/11/2006 10:23 AM JUKE BOX SERVICER) WBC 4.4 4.0 - 9.8 K/uL INTERFACE [...] fL INTERFACE SYSTEM 08/11/2006 10:2 3 AM JUKE BOX SERVICER us Gabe Moreno MD HEMATOLOGY ORDERABLES Lexi l Result Performing Organization Address City/[facility] Phone Number INTERFACE SYSTEM Refer to clinic/hospital department * TSH REFLEXIVE (08/11/2006 10:23 AM JUKE BOX SERVICER) TSH 1.25 0.27 - 4.20 uU/mL INTERFACE SYSTEM 08/11/2006 10:2 3 AM JUKE BOX SERVICER Gabe Moreno MD CHEMISTRY ORDERABLES Final Result Performing Organization Address City/[facility] Co de Phone Number INTERFACE SYSTEM Refer to clinic/hospital department * (ABNORMAL) PSA (08/11/2006 10:23 AM JUKE BOX SERVICER) PSA 6.7(H) 0.0 - 4.0 ng/mL INTERFACE SYSTEM Comment:Performed on [employer] M [employer]ular E170 System 08/11/2006 10:2 3 AM JUKE BOX SERVICER Gabe Moreno MD CHEMISTRY ORDERABLES Final Result Performing Organization Address City/[facility] de Phone Number INTERFACE SYSTEM Refer to clinic/hospital department * LIPID PANEL (08/11/2006 10:23 AM JUKE BOX SERVICER) CHOLESTEROL 120 100 - 199 mg/dL INTERFACE [...] are available on the [facility] Intranet at: [email or web address] Select: Lab Policies and Procedures Select: Reference Ranges - Lipids 08/11/2006 10:2 3 AM JUKE BOX SERVICER Gabe Moreno MD CHEMISTRY ORDERABLES Final Result INTERFACE SYSTEM Refer to clinic/hospital department * (ABNORMAL) COMPREHENSIVE METABOLIC PANEL (08/11/2006 10:23 AM JUKE BOX SERVICER) GLUCOSE 110(H) 65 - 99 mg/dL INTERFACE [...] is available on the [facility] [employer] Solutions[employer] at: [email or web address] Select: Lab Policies and Procedures Select: Reference Ranges - GFR 08/11/2006 10:2 3 AM JUKE BOX SERVICER Gabe Moreno MD CHEMISTRY ORDERABLES Final Result INTERFACE SYSTEM Refer to clinic/hospital department documented in this encounter Visit Diagnoses Diagnosis Anemia, unspecified- Primary documented in this encounter Care Teams Senior Caregiver Relationship Specialty Start Date End Date Brendan Ramon MD PCP - General Internal Medicine 02/09/18 03/20/21 documented as of this encounter
--- OUTSIDE RECORDS SUMMARY | 2024-11-29 00:33 | XMS_ITS | Encounter Summary ---
Author Organization [facility] Address [address] 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
--- OUTSIDE RECORDS SUMMARY | 2024-11-29 00:33 | XMS_ITS | Encounter Summary ---
Author Organization [facility] Address [address] 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
--- OUTSIDE RECORDS SUMMARY | 2024-11-29 00:33 | XMS_ITS | Continuity of Care Document ---
Author Organization [facility] Address [address] [place] [address] Phone Care Team Providers Care Gallery Or Museum Curator Name Role Phone Tung Patino MD Unavailable [...] Diagnoses Date Provider Providers Copied on Encounter [facility], [address], [place], [address], [phone] [facility] [address] No Information 4 Carey Ruby. [address] [place], [place], [id number] . tel: [phone] [facility], [address] [place] [address], [address], [place] [phone] O - [facility] [address] No Information 4 Carey Ruby. [address] [place], [place], [id number] . tel: [phone] OFFICE/OUTPAT IENT VISIT EST [facility], [address] [place] [address], [address], [place] tel:[phone] [facility] Spinal stenosis of lumbar regionLow back painSciatica 3 Carey Ruby. [address] [place] [address], [id number] . tel: [phone] Specialist: oMrro Kitchen, [address] [place] [address], [id number]. [phone] OFFICE CONSULTATION [facility], [address] [place] [address], [address], [place] tel:[phone] [facility] Spinal stenosis of lumbar region 3 Imtiaz Hooker. [address] [place] [address], [id number] . tel: [phone] Specialist: Morro Kitchen, [address] [place] [address], [address]. [phone] ring Provider: Gabe Centeno Retired, Retired [id number], [place], [address]. tel:[phone] OFFICE/OUTPAT IENT VISIT EST [facility], [address] [place] [address], [address], [place] tel:[phone] [facility] SciaticaLow back painSpinal stenosis of lumbar region 3 Carey Ruby. [address] [place] [address], [id number] . tel: [phone] Referring Provider: Tung Bishop, [address] [place] [address], [address]. tel:[phone] [facility], [address] [place] [address], [address], tel:[phone] [facility] No Information 3 Carey Ruby. [address] [place] [address], [id number] . tel: [phone] OFFICE CONSULTATION [facility], [address] [place] [address], [address], tel:[phone] [facility] Low back painSciatica 3 Carey Ruby. [address] [place] [address], [id number] . tel: [phone] Referring Provider: Gabe Centeno Retired, Retired [address] [place], [address]. [phone] Family History Family Member Type Diagnosis Age At Onset No Information Payers Payer name Insurance type Covered alliance party ID Authoriza tion(s) No Information Social [...]
--- OUTSIDE RECORDS SUMMARY | 2024-11-29 00:33 | XMS_ITS | Clinical Summary ---
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, without long-term current use of insulin 09/07/2012 021 Encounters Date Type Department Care Team Description 11/17/2024 External Device Data [facility] ABSTRACTION Provider, Abstract 11/06/2024 External Device Data [facility] ABSTRACTION Provider, Abstract 11/05/2024 External Device Data [facility] ABSTRACTION Provider, Abstract 10/19/2024 External Device Data [facility] ABSTRACTION Provider, Abstract 09/25/2024 [facility] [place] [id number] [place] [address] [address] [place] [address] Selwyn Booker MD Essential hypertension 09/22/2024 External Device Data [facility] ABSTRACTION Provider, Abstract 09/21/2024 External Device Data [facility] ABSTRACTION Provider, Abstract from Last 3 Months Immunizations Immunization Administration Dates Next Due (ADACEL/BOOSTRIX)(10 YR UP) TDAP VACCINE, 0.5ML, IM 08/09/2008 (PFIZER)(12 YR UP) COVID-19 VACCINE - EMERGENCY USE AUTHORIZATION, MRNA, [id number](PF) 30 MCG/0.3 ML IM SUSP 12/26/2020,12/05/2020 (PNEUMOVAX [...] on file Legal Sex Male 3:31 AM WINDOW FRAMER Gender Identity Not on file Sexual Orientation [...] 65.8 kg (145 lb) 08/28/2023 12:02 PM WINDOW FRAMER Height 182.9 cm (6') 08/28/2023 12:02 PM WINDOW FRAMER Body Mass Index 19.67 08/28/2023 12:02 PM WINDOW FRAMER Plan of Treatment Health Maintenance Due Date Last Done Comments ZOSTER VACCINE (1 of 2) 1993 DTAP/TDAP/TD VACCINES (2 - T d or Tdap) 08/09/2018 08/09/2008 RSV VACCINE (60+ or ) (1 - 1-dose 75+ series) 2018 INFLUENZA VACCINE (#1) 2024 08/28/2023, 2020 COVID-19 Vaccine (3 - 2023-2 5 season) 2024 12/26/2020, 12/05/2020 [place] Preventative Visit/Annual Wellness Visit 09/01/2024 08/28/2023, 05/28/2022, 03/08/2019, Additional history exists PNEUMOCOCCAL VACCINE 50+ YEARS Completed 0 03/21/2021, 08/23/2014, 08/15/2010 Insurance [facility] DUAL COMPLETE CHOICE PPO [facility] [id number]
--- OUTSIDE RECORDS SUMMARY | 2024-11-29 00:33 | XMS_ITS | Encounter Summary ---
Author Organization [employer] [facility] Address [address] [place] [address] Care Team Providers Care Websphere Administrator Name Role Phone Brendan Ramon MD Primary Care Provider Encounter Details Date Type Department Care Team (Latest Contact Info) Description 07/22/2005 Outpatient Historical [facility] Moreno, Gabe Jordan MD NO ADDRESS ON FILE OSTEOARTHROS NOS-UNSPEC (Primary Dx) Social History Tobacco Use Types Packs/Day Years Used Date Smoking Tobacco: Never Assessed Sex and Gender Information Value Date Recorded Sex Assigned at Not on file Legal Sex Male 3:31 AM REINFORCEMENT MAKER Gender Identity Not on file Sexual Orientation Not on file documented as of this encounter Plan of Treatment Not on file documented as of this encounter Procedures Procedure Name Priority Date/Time Associated Diagnosis Comments URINALYSIS W/REFLEX MICROSCOPIC Routine 07/22/2005 3:24 PM REINFORCEMENT MAKER TSH REFLEXIVE Routine 07/22/2005 3:17 PM REINFORCEMENT MAKER CBC WITH DIFFERENTIAL Routine 07/22/2005 3:17 PM REINFORCEMENT MAKER CBC WITH DIFFERENTIAL Routine 07/22/2005 3:17 PM REINFORCEMENT MAKER PSA Routine 07/22/2005 3:17 PM REINFORCEMENT MAKER LIPID PANEL Routine 07/22/2005 3:17 PM REINFORCEMENT MAKER COMPREHENSIVE METABOLIC PANEL Routine 07/22/2005 3:17 PM REINFORCEMENT MAKER documented in this encounter Results * (ABNORMAL) URINALYSIS (07/22/2005 3:24 PM REINFORCEMENT MAKER) COLOR UA Yellow INTERFACE SYSTEM CLARITY UA [...] Negative Negative INTERFACE SYSTEM 07/22/2005 3:24 PM REINFORCEMENT MAKER Gabe Moreno MD URINE ORDERABLES Final Res ult Performing Organization Address [facility] Phone Number INTERFACE SYSTEM Refer to clinic/hospital department * (ABNORMAL) CBC WITH DIFFERENTIAL (07/22/2005 3:17 PM REINFORCEMENT MAKER) NEUTROPHILS 72(H) 45 - 70 % INTERFAC [...] 0.20 K/uL INTERFACE SYSTEM 07/22/2005 3:17 PM REINFORCEMENT MAKER Gabe Moreno MD HEMATOLOGY ORDERABLES Lexi l Result Performing Organization Address [facility] de Phone Number INTERFACE SYSTEM Refer to clinic/hospital department * CBC WITH DIFFERENTIAL (07/22/2005 3:17 PM REINFORCEMENT MAKER) WBC 6.6 4.0 - 9.8 K/uL INTERFACE [...] 12.4 fL INTERFACE SYSTEM 07/22/2005 3:17 PM REINFORCEMENT MAKER Gabe Moreno MD HEMATOLOGY ORDERABLES Lexi l Result Performing Organization Address [facility] Phone Number INTERFACE SYSTEM Refer to clinic/hospital department * TSH REFLEXIVE (07/22/2005 3:17 PM REINFORCEMENT MAKER) TSH 1.21 0.27 - 4.20 uU/mL INTERFACE SYSTEM 07/22/2005 3:17 PM REINFORCEMENT MAKER Gabe Moreno MD CHEMISTRY ORDERABLES Final Result Performing Organization Address [facility] Phone Number INTERFACE SYSTEM Refer to clinic/hospital department * PSA (07/22/2005 3:17 PM REINFORCEMENT MAKER) PSA 2.6 0.0 - 4.0 ng/mL INTERFACE SYSTEM Comment:Performed on Kasi M odular E170 System 07/22/2005 3:17 PM REINFORCEMENT MAKER Gabe Moreno MD CHEMISTRY ORDERABLES Final Result Performing Organization Address [facility] Phone Number INTERFACE SYSTEM Refer to clinic/hospital department * LIPID PANEL (07/22/2005 3:17 PM REINFORCEMENT MAKER) LIPID PANEL COMMENT See below INTERFACE SYSTEM [...] section for risk classifications. 07/22/2005 3:17 PM REINFORCEMENT MAKER us Gabe Moreno MD CHEMISTRY ORDERABLES Final Result INTERFACE SYSTEM Refer to clinic/hospital department * (ABNORMAL) COMPREHENSIVE METABOLIC PANEL (07/22/2005 3:17 PM REINFORCEMENT MAKER) GLUCOSE 100 65 - 109 mg/dL INTERFACE [...] 30 mmol/L INTERFACE SYSTEM 07/22/2005 3:17 PM REINFORCEMENT MAKER us Gabe Moreno MD CHEMISTRY ORDERABLES Final Result INTERFACE SYSTEM Refer to clinic/hospital department documented in this encounter Visit Diagnoses Diagnosis Osteoarthrosis, unspecified whether generalized or localized, unspecified site- Primary documented in this encounter Care Teams Websphere Administrator Relationship Specialty Start Date End Date Brendan Ramon MD PCP - General Internal Medicine 02/09/18 03/20/21 documented as of this encounter
--- OUTSIDE RECORDS SUMMARY | 2024-11-29 00:33 | XMS_ITS | Encounter Summary ---
Author Organization [facility] Address [address] 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
--- OUTSIDE RECORDS SUMMARY | 2024-11-29 00:33 | XMS_ITS | Encounter Summary ---
Author Organization [facility] Address [address] 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
--- OUTSIDE RECORDS SUMMARY | 2024-11-29 00:33 | XMS_ITS | Encounter Summary ---
Author Organization [facility] Address [address] [place]: Epic Prelude ADT [place] [address] Care Team Providers Care Microfilm Operator Name Role Phone Brendan Ramon MD Primary Care Provider Encounter Details Date Type Department Care Team (Late st Contact Info) Description 04/14/1990 Outpatient Historical SafGabe mejia MD NO ADDRESS ON FILE Social History Tobacco Use Types Packs/Day Years Used Date Smoking Tobacco: Never Assessed Sex and Gender Information Value Date Recorded Sex Assigned at Not on file Legal Sex Male 3:31 AM INTERNATIONAL RECRUITER Gender Identity Not on file Sexual Orientation Not on file documented as of this encounter Plan of Treatment Not on file documented as of this encounter Visit Diagnoses Not on filedocumented in this encounter Care Teams Microfilm Operator Relationship Specialty Start Date End Date Brendan Ramon MD PCP - General Internal Medicine 02/09/18 03/20/21 documented as of this encounter
--- OUTSIDE RECORDS SUMMARY | 2024-11-29 00:33 | XMS_ITS | Encounter Summary ---
Author Organization [employer] [facility] Address 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
--- OUTSIDE RECORDS SUMMARY | 2024-11-29 00:33 | XMS_ITS | Encounter Summary ---
Author Organization [employer] [facility] Address 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
--- OUTSIDE RECORDS SUMMARY | 2024-11-29 00:33 | XMS_ITS | Encounter Summary ---
Author Organization [employer] [facility] Address 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
--- OUTSIDE RECORDS SUMMARY | 2024-11-29 00:33 | XMS_ITS | Encounter Summary ---
Author Organization [facility] Address [address] 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
--- OUTSIDE RECORDS SUMMARY | 2024-11-29 00:33 | XMS_ITS | Clinical Summary ---
Author Organization [facility] [address] Address [address] [place] [address] Care Team Providers Care Matchbook Assembler Name Role Phone Benny Kendall MD Primary Care Provider Chato Alexander MD Unavailable Allergies No known active allergies Medications hearing aid accessory misc Hearing Aids DX H91.90. 8 Active cyanocobalamin (vitamin B-12) 500 mcg tabletIndicatio ns:Prevention of Vitamin B12 Deficiency Take 1 tablet (500 mcg total) by mouth daily Active magnesium oxide (MAG-OX) 250 mg (150.8 mg elemental) tabletIndicatio ns:hypomagnesem ia 1 tablet (250 mg total) daily Active cholecalciferol (Vitamin D3) 2000 unit capsule 1 capsule (2,000 Units total) Active itqjctjr-puqs-s ml5-U-adny-bosw 750 mg-644 mg- 30 mg-1 mg tablet Take by mouth Active acetaminophen (ARTHRITIS PAIN RELIEF, ACETAM, ORAL) Take by mouth Active dilTIAZem CD 120 mg 24 hr capsule Take 1 capsule (120 mg total) by mouth daily 90 capsule 3 4 Active metFORMIN XR (GLUCOPHAGE XR) 500 mg 24 hr tablet Take 1 tablet (500 mg total) by mouth daily with breakfast 30 tablet 2 4 12/21/19 25 Active ipratropium (ATROVENT) 21 mcg (0.03 %) nasal sprayIndication s:Rhinorrhea USE 2 SPRAYS IN BOTH NOSTRILS EVERY 12 HOURS 90 mL 1 5 Active metoprolol tartrate (LOPRESSOR) 75 mg tablet immediate release tablet TAKE 1 TABLET BY MOUTH TWICE DAILY 200 tablet 2 Active Eliquis 5 mg tablet TAKE 1 TABLET BY MOUTH TWICE DAILY 200 tablet 2 Active hydroCHLOROthia zide (HYDRODIURIL) 25 mg tablet Take 1 tablet (25 mg total) by mouth daily 90 tablet 3 5 10/27/19 Active ramipriL (ALTACE) 10 mg capsule Take 1 capsule (10 mg total) by mouth daily 90 capsule 3 5 10/27/19 Active Active Problems Problem Noted Date Diagnosed Date Left inguinal hernia 07/06/2024 Longstanding persistent atrial fibrillation 06/02 Nonrheumatic mitral valve regurgitation 12/11/19 RBBB 12/11/2023 Establishing care with new doctor, [...] Type Department Care Team Description 10/25/2024 Telephone [facility] [address] [place] [phone] Ya Yu MA Successful Phone Call (AWV SCHEDULING) 10/20/2024 Telephone [facility] Organization [address] [place] [phone] Ya Yu MA Unsuccessful Phone Call 1 (AWV SCHEDULING) 09/02/2024 11:45 AM TRACK WELDER Office Visit [facility] Primary Care at [address] [address] Benny Kendall MD Rhinorrhea (Primary Dx) from Last 3 Months Immunizations Immunization Administration [...] on file Legal Sex Male 3:56 PM TRACK WELDER Gender Identity Not on file Sexual Orientation Not on file Obstetrics History Last Filed Vital Signs Vital Sign Reading Time Taken Comments Blood Pressure 118/80 09/02/2024 12:09 PM TRACK WELDER Pulse 80 09/02/2024 12:09 PM TRACK WELDER Temperature 36 C (96.8 F) 09/02/2024 12:09 PM TRACK WELDER Respiratory Rate 18 09/02/2024 12:09 PM TRACK WELDER Oxygen Saturation 98% 09/02/2024 12:09 PM TRACK WELDER Inhaled Oxygen Concentration - - Weight 60.8 kg (134 lb) 09/02/2024 12:09 PM TRACK WELDER Height 182.9 cm (6') 09/02/2024 12:09 PM TRACK WELDER Body Mass Index 18.17 09/02/2024 12:09 PM TRACK WELDER Plan of Treatment Health Maintenance Due Date [...] the future) Depression Screening 07/06/2025 07/06/2024, 12/09/19 24 Pneumococcal vaccine 65+ Completed 021, 08/23/2014, 08/15/2010 Insurance [facility] MEDIC[facility] ADVANTAGE Care Teams Matchbook Assembler Relationship Specialty Start Date End Date Benny Kendall MD [address] [place] [address] PCP - General Family Medicine 12/09/23 Chato Alexander MD [address] [facility] [address] [place] [address] Consulting Physician Cardiology 12/09/23
--- OUTSIDE RECORDS SUMMARY | 2024-11-29 00:33 | XMS_ITS | Encounter Summary ---
Author Organization [facility] Address [address] 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
--- OUTSIDE RECORDS SUMMARY | 2024-11-29 00:33 | XMS_ITS | Encounter Summary ---
Author Organization [facility] Address [address] 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
--- OUTSIDE RECORDS SUMMARY | 2024-11-29 00:33 | XMS_ITS | Referral Summary ---
Author Organization [facility] Address [address] [place] [phone] Care Team Providers Care Whiskey Regauger Name Role Phone Benny Kendall MD Primary Care Provider Chato Alexander MD Unavailable Encounters Date Type Department Care Team Description 10/25/[address] [address] Ya Yu MA Successful Phone Call (AWV SCHEDULING) 10/20/[address] [address] Ya Yu MA Unsuccessful Phone Call 1 (AWV SCHEDULING) 09/02/2024 11:45 AM LUMBER MATERIAL HANDLER Office Visit [facility] Primary Care at [address] [phone] Benny Kendall MD Rhinorrhea (Primary Dx) from Last 3 Months Allergies No known active allergies Medications hearing aid [facility] Hearing Aids DX H91.90. 8 Active cyanocobalamin (vitamin B-12) 500 mcg tabletIndicatio ns:Prevention of Vitamin B12 Deficiency Take 1 tablet (500 mcg total) by mouth daily Active magnesium oxide (MAG-OX) 250 mg (150.8 mg elemental) tabletIndicatio ns:hypomagnesem ia 1 tablet (250 mg total) daily Active cholecalciferol (Vitamin D3) 2000 unit capsule 1 capsule (2,000 Units total) Active gydbzbse-pwgc-z mc5-[id number]-hqap-bosw 750 mg-644 mg- 30 mg-1 mg tablet [...] BY MOUTH TWICE DAILY 200 tablet 2 5 Active Eliquis 5 mg tablet TAKE 1 TABLET BY MOUTH TWICE DAILY 200 tablet 2 5 Active hydroCHLOROthia zide (HYDRODIURIL) 25 mg tablet Take 1 tablet (25 mg total) by mouth daily 90 tablet 3 5 10/27/19 26 Active ramipriL (ALTACE) 10 mg capsule Take 1 capsule (10 mg total) by mouth daily 90 capsule 3 5 10/27/19 26 Active Active Problems Problem Noted Date Diagnosed [...] on file Legal Sex Male 3:56 PM LUMBER MATERIAL HANDLER Gender Identity Not on file Sexual Orientation Not on file Last Filed Vital Signs Vital Sign Reading Time Taken Comments Blood Pressure 118/80 09/02/2024 12:09 PM LUMBER MATERIAL HANDLER Pulse 80 09/02/2024 12:09 PM LUMBER MATERIAL HANDLER Temperature 36 C (96.8 F) 09/02/2024 12:09 PM LUMBER MATERIAL HANDLER Respiratory Rate 18 09/02/2024 12:09 PM LUMBER MATERIAL HANDLER Oxygen Saturation 98% 09/02/2024 12:09 PM LUMBER MATERIAL HANDLER Inhaled Oxygen Concentration - - Weight 60.8 kg (134 lb) 09/02/2024 12:09 PM LUMBER MATERIAL HANDLER Height 182.9 cm (6') 09/02/2024 12:09 PM LUMBER MATERIAL HANDLER Body Mass Index 18.17 09/02/2024 12:09 PM LUMBER MATERIAL HANDLER Plan of Treatment Not on file Insurance [facility] MEDICARE ADVANTAGE Care Teams Whiskey Regauger Relationship Specialty Start Date End Date Benny Kendall MD [address] [facility] [address] [place] [address] PCP - General Family Medicine 12/09/23 Chato Alexander MD [address] [facility] [address] [place] [address] Consulting Physician Cardiology 12/09/23
--- OUTSIDE RECORDS SUMMARY | 2024-11-29 00:33 | XMS_ITS | Encounter Summary ---
Author Organization [facility] Address [address] 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
--- OUTSIDE RECORDS SUMMARY | 2024-11-29 00:33 | XMS_ITS | Encounter Summary ---
Author Organization [employer] Address 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
--- OUTSIDE RECORDS SUMMARY | 2024-11-29 00:33 | XMS_ITS | Encounter Summary ---
Author Organization [facility] Address [address] [place]: Epic Prelude ADT [place] [address] Care Team Providers Care Soda Flaker Name Role Phone Brendan Ramon MD Primary Care Provider Encounter Details Date Type Department Care Team (Late st Contact Info) Description 11/10/1992 Outpatient Historical Gabe Moreno MD NO ADDRESS ON FILE Social History Tobacco Use Types Packs/Day Years Used Date Smoking Tobacco: Never Assessed Sex and Gender Information Value Date Recorded Sex Assigned at Not on file Legal Sex Male 3:31 AM LATHE WINDER Gender Identity Not on file Sexual Orientation Not on file documented as of this encounter Plan of Treatment Not on file documented as of this encounter Visit Diagnoses Not on filedocumented in this encounter Care Teams Soda Flaker Relationship Specialty Start Date End Date Brendan Ramon MD PCP - General Internal Medicine 02/09/18 03/20/21 documented as of this encounter
--- OUTSIDE RECORDS SUMMARY | 2024-11-29 00:33 | XMS_ITS | Encounter Summary ---
Author Organization [facility] Address [address] [place] [address] Care Team Providers Care Relationship Counselor Name Role Phone Brendan Ramon MD Primary Care Provider Encounter Details Date Type Department Care Team (Late st Contact Info) Description 04/12/2019 Chart Note [facility] Care [facility] - [address] [place] [address] Zoey Peralta, RN Social History Tobacco Use Types Packs/Day Years Used Date Smoking Tobacco: Never Smokeless Tobacco: Never Alcohol Use Standard Drinks/Week Comments No 0 (1 standard drink = 0.6 oz pur e alcohol) occ Sex and Gender Information Value Date Recorded Sex Assigned at Not on file 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
--- OUTSIDE RECORDS SUMMARY | 2024-11-29 00:33 | XMS_ITS | Encounter Summary ---
Author Organization [employer] [facility] Address 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
--- OUTSIDE RECORDS SUMMARY | 2024-11-29 00:33 | XMS_ITS | Encounter Summary ---
Author Organization [facility] Address [address] 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
--- NOTE | 2024-11-29 07:10 | PM.IMHP ---
H&P: HPI History of Present Illness Date/Time: 11/29/24 07:10 Chief Complaint: left inguinal hernia Narrative: Olman is a 78 y/o male who presents to the office at the request of Dr. Kendall for evaluation of a left inguinal hernia. Patient states he noticed a bulge in the left groin a few months ago. He denies any pain. He urinates normally and denies any issues with bowel habits. Denies any increase in size of the bulge. Review of Systems Review of Systems: All systems reviewed & are unremarkable except as noted in HPI and below PMFSH Past Medical History Medical History Longstanding persistent atrial fibrillation Nonrheumatic mitral valve regurgitation Spinal stenosis of lumbar region with neurogenic claudication Sensorineural hearing loss Both ears Prediabetes Osteoarthritis Elevated prostate specific antigen (PSA) BPH (benign prostatic hyperplasia) Anemia Social History Social History Smoking status: Never smoker Do You Feel Safe in your Home?: Yes Lack of Transportation: No Lack of Food: Never True Current Housing: Decline to Answer Concerned About Future Housing: No Difficulty Paying Gas/Electric Bills: No Difficulty Paying for Meds: No Currently Unemployed: No Education: Bachelor's Degree Difficulty w/ Childcare or Family Care: No Living arrangements: with family Additional living arrangements comments: Spiritual care concerns: No Meds Home Medications and Allergies Home Medications ?Medication ?Instructions ?Recorded ?Confirmed ?Type apixaban 5 mg tablet (Eliquis) 5 mg PO BID 07/14/24 08/20/24 History cyanocobalamin (vitamin B-12) 500 500 mcg PO DAILY 07/14/24 08/20/24 History mcg tablet diltiazem HCl 120 mg 120 mg PO DAILY 07/14/24 08/20/24 History capsule,extended release 24 hr glucosamine HCl 750 mg tablet 1,500 mg PO DAILY 07/14/24 08/20/24 History hydrochlorothiazide 25 mg tablet 25 mg PO DAILY 07/14/24 08/20/24 History magnesium oxide 250 mg PO DAILY 07/14/24 08/20/24 History metformin 500 mg 24 hr 500 mg PO DAILY 07/14/24 08/20/24 History tablet,extended release (gastric retention) metoprolol tartrate 75 mg tablet 75 mg PO BID 07/14/24 08/20/24 History ramipril 10 mg capsule 10 mg PO DAILY 07/14/24 08/20/24 History acetaminophen 650 mg 1,300 mg PO Q12H PRN pain 08/20/24 11/10/24 History tablet,extended release (8 Hour Pain Reliever) ascorbic acid (vitamin C) 1,000 mg 1 g PO DAILY 08/20/24 08/20/24 History tablet Allergies Allergy/AdvReac Type Severity Reaction Status Date / Time No Known Allergies Allergy Verified 11/10/24 11:13 Exam Const: General: cooperative, comfortable and no acute distress Resp: Auscultation: clear to auscultation bilaterally Cardio: Rate: regular rate Rhythm: regular rhythm GI: Inspection: normal to inspection GI Palp: No abdominal tenderness and Yes Hernia present Other: large LIH reducible Assessment and Plan Assessment and plan (1) Left inguinal hernia: Code(s): K40.90 - Unilateral inguinal hernia, without obstruction or gangrene, not specified as recurrent Status: Acute Assessment and Plan: will setup for repair with mesh
--- NOTE | 2024-11-29 07:12 | WPDHPUPDATE1 ---
History and Physical Update Update Date/Time: 11/29/24 07:12 History and Physical has been reviewed, including an updated exam of the patient. There are NO changes in the patient's condition. Risks, benefits, and alternatives have been discussed and questions answered. Patient agrees to proceed with procedure.
[2024-11-29] MEDS: LACTATED RINGERS 1,000 ML 30 ML IV CONT ×2 (07:55→11:24)
--- NOTE | 2024-11-29 07:56 | P.PNAN_ITS ---
Anes - Initial Pre Proc Eval Procedure: Operation Date: 11/29/24 09:30 Proposed Procedures p Robotic Assisted Left Inguinal Hernia Repair with Mesh - Vale Flor MD Date/Time: 11/29/24 07:56 Surgeon: Vale Folr MD Pre Op Diagnosis: Lt Ing Hernia Patient Data Age: 79 Gender: M Height: 1.83 m Weight: 64 kg Allergies Allergy/AdvReac Type Severity Reaction Status Date / Time No Known Allergies Allergy Verified 11/29/24 07:47 Home Medications ?Medication ?Instructions ?Recorded ?Confirmed ?Type apixaban 5 mg tablet (Eliquis) 5 mg PO BID 07/14/24 11/29/24 History cyanocobalamin (vitamin B-12) 500 500 mcg PO DAILY 07/14/24 11/29/24 History mcg tablet diltiazem HCl 120 mg 120 mg PO DAILY 07/14/24 11/29/24 History capsule,extended release 24 hr glucosamine HCl 750 mg tablet 1,500 mg PO DAILY 07/14/24 11/29/24 History hydrochlorothiazide 25 mg tablet 25 mg PO DAILY 07/14/24 11/29/24 History magnesium oxide 250 mg PO DAILY 07/14/24 11/29/24 History metformin 500 mg 24 hr 500 mg PO DAILY 07/14/24 08/20/24 History tablet,extended release (gastric retention) metoprolol tartrate 75 mg tablet 75 mg PO BID 07/14/24 11/29/24 History ramipril 10 mg capsule 10 mg PO DAILY 07/14/24 11/29/24 History acetaminophen 650 mg 1,300 mg PO Q12H PRN pain 08/20/24 11/10/24 History tablet,extended release (8 Hour Pain Reliever) ascorbic acid (vitamin C) 1,000 mg 1 g PO DAILY 08/20/24 11/29/24 History tablet Patient hx anesthesia problems: none Family hx anesthesia problems: none Results Review: All pre-operative results and documents have been reviewed as part of the pre- operative evaluation. [facility] Past Medical History Medical History Longstanding persistent atrial fibrillation Nonrheumatic mitral valve regurgitation Spinal stenosis of lumbar region with neurogenic claudication Sensorineural hearing loss Both ears Prediabetes Osteoarthritis Elevated prostate specific antigen (PSA) BPH (benign prostatic hyperplasia) Anemia Social History Social History Smoking status: Never smoker Do You Feel Safe in your Home?: Yes Lack of Transportation: No Lack of Food: Never True Current Housing: Decline to Answer Concerned About Future Housing: No Difficulty Paying Gas/Electric Bills: No Difficulty Paying for Meds: No Currently Unemployed: No Education: Bachelor's Degree Difficulty w/ Childcare or Family Care: No Living arrangements: with family Additional living arrangements comments: Spiritual care concerns: No Anes - Eval Final PreProcedure Day of Procedure 11/29/24 07:56 Patient weight: normal Heart: regular rate and rhythm Lungs: clear to auscultation Airway: Mallampati scale class II Neurological: alert and oriented Last oral intake: >/= 8 hours ASA classification: III Emergent: no Anesthetic plan: proceed Anesthesia type and monitoring: general ETT and standard monitoring Results Review: All pre-operative results and documents have been reviewed as part of the pre- operative evaluation. Informed Consent: The patient's anesthetic plan and its attendant risks and benefits were discussed with the patient/family/POA. Questions were solicited and answers provided to the satisfaction of the patient/family/POA.
[2024-11-29] MEDS: KETOROLAC 15 MG/ML VIAL (*BKC) IV PUSH (08:00)
[2024-11-29] MEDS: ACETAMINOPHEN 500 MG TABLET 1000 MG PO (08:00)
[2024-11-29] MEDS: ceFAZolin 2 GM/D5W 50 ML 2 GM/50 ML BAG IVPB (09:48)
[2024-11-29] MEDS: BUPIVACAINE/EPINEPHRINE 0.5% 50 ML VIAL 30 ML INFILTRATE (10:23)
--- NOTE | 2024-11-29 11:37 | P.OP_ITS ---
Procedure Note - Detailed Date of Procedure 11/29/24 Pre-op Diagnosis Left inguinal hernia Post-op Diagnosis Same Procedure Performed robotic assisted left inguinal hernia repair with mesh Surgeon Vale Flor MD Anesthesia General Indications 79-year-old male with large left inguinal hernia over the last 6 months. Patient reports increased symptomatology especially with increased intra- abdominal pressure. Findings indirect left inguinal hernia Description of Procedure Patient was brought into the operating room and placed in the supine position. After adequate induction of general anesthesia, the patient was prepped and draped in normal sterile fashion. A time-out was then done to verify the patient's identity, as well as the procedure being performed. I began by making a 8 mm incision in the supraumbilical region, a Veress needle was then placed into the peritoneal cavity. CO2 gas was then insufflated and after adequate pneumoperitoneum was achieved, the Veress needle was removed. I then placed an 8 mm trocar through this incision. I then placed the endoscope through this trocar site and under direct visualization placed 2 further 8 mm ports in the right and left mid abdomen. The [employer] robot was then docked to the 3 trocar sites. I then scrubbed out and went to the robotic console. Upon examining the pelvis, it was noted that the patient had a large left inguinal hernia. The right side was examined and no hernia defect was noted. I began by making a preperitoneal flap approximately 6 cm superior to the defect. This flap was carried medially past the umbilical ligaments and laterally to the transversalis. It then began dissection of my medial compartment taking this down to the pubic tubercle. I then began the lateral dissection taking this down to the transversalis fascia. Once these compartments were achieved, I began dissection around the cord structures. A large sized indirect hernia was noted at this point. Using careful dissection, was able to reduce indirect hernia sac off the cord structures. Once this was adequately done, I went ahead and placed a large piece of 3D Max mesh into the abdominal cavity. The mesh was carefully positioned, centering the center of the mesh over the indirect defect. Once this was done, was very satisfied with our repair. Using 3-0 Vicryl sutures, I tacked the mesh medially to Farooq's ligament. Two lateral sutures were placed from the mesh to the transversalis fascia. I then closed the peritoneal flap with a running 2.0 V Lock suture. The abdomen was then desufflated, and all ports were removed. All incisions were then closed with the 4.0 monocryl suture. Dermabond was placed on each wound. The patient tolerated the procedure well, was extubated in the operating room postoperatively, and will now be transferred to the recovery room in stable condition. Implants large 3DMax mesh Estimated Blood Loss 10 Drains No Packing No Pathology None sent Complications No immediate complications Condition Stable Disposition PACU
--- NOTE | 2024-11-29 13:42 | SUR.PHASEII ---
Patient's vitals are stable. Patient is unhooked from monitors and waiting for ride.
== END 2024-11-29 14:45 | disposition home or self-care (01) ==
PROVIDERS: PCP Family Medicine; Visit Provider Surgery
PROC: 8E0Y4CZ Robotic Assisted Procedure of Lower Extremity, Percutaneous Endoscopic Approach (ICD-10-PCS; CPT 49650; principal; 2024-11-29 09:30)
DX: K40.90 Unilateral inguinal hernia, without obstruction or gangrene, not specified as recurrent (principal); R73.03 Prediabetes; N40.0 Benign prostatic hyperplasia without lower urinary tract symptoms; D64.9 Anemia, unspecified; I48.11 Longstanding persistent atrial fibrillation; I34.0 Nonrheumatic mitral (valve) insufficiency; M48.062 Spinal stenosis, lumbar region with neurogenic claudication; M19.90 Unspecified osteoarthritis, unspecified site; Z79.01 Long term (current) use of anticoagulants; Z79.84 Long term (current) use of oral hypoglycemic drugs
CPT/HCPCS: 49650; S2900; 36415; 86850; 86900; 86901; A9270; C1781; J0330; J0690; J1100; J1885; J2003; J2405; J2704; J3010; J7120